=== PATIENT | male | born 1950 | race Caucasian/White ===

== ENCOUNTER 2021-08-04 13:16 | Outpatient (CLI) | payer MEDICARE ==
[2021-08-04] MEDS ORDERED: Magnevist 469MG/ML 20 ML VIAL ONE (15:22)
== END 2021-08-04 13:17 | disposition home or self-care (01) ==
LOC: CSHSPEC 13:16
PROVIDERS: ATTEND Internal Medicine Gastroenterology
DX: R10.9 Unspecified abdominal pain (principal); R79.89 Other specified abnormal findings of blood chemistry; R93.5 Abnormal findings on diagnostic imaging of other abdominal regions, including retroperitoneum; F40.240 Claustrophobia; Z95.0 Presence of cardiac pacemaker; K80.50 Calculus of bile duct without cholangitis or cholecystitis without obstruction; K83.8 Other specified diseases of biliary tract
CPT/HCPCS: 71045; 74183; A9579